=== PATIENT | female | born 1990 | race Caucasian/White ===

== ENCOUNTER 2016-06-02 19:54 | Emergency (ER) | payer OTHER ==
[~2016-06-02] VITALS: Ht 160 cm; Wt 85.5 kg
[2016-06-02 20:08] VITALS: BP 142/99; PULSE 108; RESP 16; O2SAT 97
--- NOTE | 2016-06-02 20:21 | ED.REPORT ---
HPI-Dental/Mouth Prob Date of Service Jun 02, 2016 ED Provider: Dr. Jason Garcia D.O. A healthy 26 year old female presents to the ED with left-sided dental pain onset a couple of weeks ago. The patient also reports swelling around the area. She has a dentist appointment on 06/09/16 but the pain worsened tonight and she couldn't wait. Nursing Notes Stated Complaint: TOOTHACHE Chief Complaint: Dental Nursing Notes Reviewed: Yes Allergies: Coded Allergies: amoxicillin (Verified Allergy, Mild, yeast infection, 06/02/16) General Time Seen by MD: 20:21 Chief Complaint Tooth pain Hx Obtained From: Patient Arrived By: Walk-in Onset Occurred: More than a week ago... ("A couple of weeks") Symptom Duration: Since onset Location: : Tooth upper L molar Quality: Painful Severity: Current: Moderate Severity: Maximum: Moderate Associated with: Denies: Fever Pertinent Negative: Relieved by nothing Recent Healthcare: No recent doctor visit Similar Sx Previous: No Past Medical History Past Medical History None reported Past Surgical History None reported Smoking History Unknown if Ever Smoker Social History Other Social History: Good social support Ambulatory Status Independent Review of Systems Review of Systems Note: + Gum swelling Constitutional: Denies: Fever Ears / Nose / Throat: Reports: Toothache (Left-sided) Respiratory: Denies: Non-productive cough, Shortness of breath GI: Denies: Vomiting Complete sys rev & neg: except as marked. Physical Exam Initial Vital Signs Vital Signs (First) Date Time Temp Pulse Resp B/P Pulse Ox O2 Delivery O2 Flow Rate FiO2 06/02/16 20:08 36.8 108 16 142/99 97 Room Air Initial VS: Reviewed Head / Eyes: Atraumatic, Normocephalic Respiratory: Breath sounds normal, Clear to auscultation, No respiratory distress Cardiovascular: Regular rate & rhythm, Heart sounds normal Skin: Warm, Dry, No cyanosis Neurologic: Alert, Oriented, Nonfocal Psychiatric: Mood/affect normal, Behavior normal, Normal thought content ENT: Airway patent, Mucous membranes moist Dental / Gums: Positive: Dental caries present, Dental impaction ([place] tooth) Neck: Supple, Full range of motion General/Constitutional: Awake, Alert, No acute distress Procedures Dental Nerve Block Time: 21:40 Block Performed by: ED physician Consent / Setup / Site Prep: Consent from patient, Time-out performed, Hand hygiene observed Anesthesia: Inferior alveolar block Local Anesthesia: Lidocaine 2% Post-Procedure / Complications: No complications, Condition improved, Tolerated procedure well, Patient stable, No bleeding Re-Eval/Medical Decision Re-Evaluation/Progress : Time of Eval: 21:44 Patient Status: Condition improved Re-Evaluation/Progress Note: Discussed with patient diagnosis and plan for discharge. Follow-up and return to the ER instructions given. Patient agrees with plan for care and all questions were addressed. Counseled Regarding: Diagnosis, Need for follow-up, When/why to return to ED Discharge & Departure Primary Impression: Toothache Disposition: Home Discharge Condition All VS Reviewed: Yes Condition: Improved Patient Instructions: Dental Caries (ED) Additional Instructions: Thank you for entrusting us with your care. Please take Clindamycin three times daily for 5 days as prescribed. 1-2 Percocet every six hours as needed for pain. Do not drink alcohol, drive, or consume acetaminophen while taking Percocet. Keep your dentist appointment tomorrow. Return to the ER with any new or worsening symptoms. Referrals: Ralph Beth DO (PCP) Manav Attestation Portions of this note were transcribed by Brook Rollins. I, Dr. Garcia, personally performed the history, physical exam, and medical decision-making; I reviewed and confirmed the accuracy of the information in the transcribed note. Signed by: Manav Adamson, 06/02/2016, 23:13 copies to: Ralph Beth DO Beia, Todd P DO Jun 02, 2016 20:21 BROOK ROLLINS Jun 02, 2016 21:10
[2016-06-02] MEDS ORDERED: Lidocaine 2% 50 mL Inj NERVEBLOCK ONE (21:15)
[2016-06-02] MEDS ORDERED: _oxyCODONE/APAP 5-325 mg Tablet PO PRN (21:15)
[2016-06-02 22:10] VITALS: BP 142/99; PULSE 108; RESP 16; O2SAT 97
== END 2016-06-02 22:12 | disposition home or self-care (01) ==
LOC: SED 19:54
DX: K08.89 Other specified disorders of teeth and supporting structures (principal); Z88.1 Allergy status to other antibiotic agents